=== PATIENT | female | born 1985 | race Caucasian/White ===

== ENCOUNTER 2020-11-15 22:08 | Emergency (ER) | payer BC ==
[~2020-11-15] VITALS: Ht 170.2 cm; Wt 88.0 kg
--- NOTE | 2020-11-15 22:21 | NUR ---
Received patient to Er w/ c/o right foot/ankle pain sustained while exiting her vehicle. nvi, limited rom 2nd to pain, crf<3 sec. Introduced self to patient, positioned for comfort, ice pack to right foot. continue to monitor. Patient resting quietly. No acute distress noted. Vital signs within normal range.
[2020-11-15 22:22] VITALS: BP_SYST 141
--- NOTE | 2020-11-15 23:30 | NUR ---
ankle splint applied to right ankle. (+) pulse noted. Capillary refill <3 seconds. Patient has ability to move non-splinted digits. Has sensation present to affected site. Skin color within normal limits. Applied for pain management control. Crutches properly fitted for patient by Roger . Patient given crutch walking instructions and demonstration. Is able to demonstrate adequate crutch walking technique with crutches provided.
[2020-11-15 23:40] VITALS: BP_SYST 130
--- NOTE | 2020-11-15 23:40 | NUR ---
Patient given written and verbal discharge instructions and verbalizes understanding. ER MD discussed with patient the results and treatment provided. Patient in stable condition. Rx of given. Patient educated on pain management and to follow up with PMD. Pain Scale 3. Opportunity for questions provided and answered. Medication side effect fact sheet provided.
== END 2020-11-15 23:40 | disposition home or self-care (01) ==
LOC: SED 22:08
DX: S93.491A Sprain of other ligament of right ankle, initial encounter (principal); X50.0XXA Overexertion from strenuous movement or load, initial encounter; Y93.89 Activity, other specified; Y92.89 Other specified places as the place of occurrence of the external cause; Y99.8 Other external cause status
CPT/HCPCS: 99283